=== PATIENT | female | born 1980 | race Two or more races ===

== ENCOUNTER → 2016-10-28 | Outpatient (CLI) | payer SELFPAY ==
[~2016-10-28] MED LIST: NO MEDICATIONS; PEPCID40 MG PO; PREDNISONE50 MG PO
--- NOTE | ~2016-10-28 | CR63 ---
[facility] A Service of [facility] & [facility] RADIOLOGY TEXT RESULTS PATIENT: SONA CHUN LOCATION: [facility] : 76 UNIT #: [id number] AGE: [address]: Alo Andrade MD SEX: F ORDER DR: [id number] [facility] [address] [place], [place] [address] [id number] O MR#: [id number] Acc #: [id number] NAME: SONA CHUN : 1980 SEX: F STUDY DATE/TIME: 10/28/2016 17:28 UNIT: [facility] ROOM: STUDY DESCRIPTION: CR Chest 2 View Attending Physician: Alo Andrade M.D. Referring Physician: Alo Andrade M.D. Ordering Physician: Alo Andrade M.D. Primary Care Physician: No Primary Care Physician MEDICAL IMAGING REPORT This report is preliminary unless electronic signature is present EXAM 2 view chest. DATE OF EXAM 10/28/2016 INDICATIONS Routine school physical. FINDINGS PA and lateral views of the chest without comparison. Heart and mediastinal contours are normal. Lungs are clear. There is mild dextroscoliosis with apex at the T9-10 level. IMPRESSION No acute findings. Negative chest radiograph. Dictated by... Giovanni Bearden M.D. THIS IS AN ELECTRONICALLY VERIFIED REPORT Giovanni Bearden M.D. at 10/29/2016 7:53 AM MONICA/nina TD: 10/28/2016 22:03 JOB #: [id number] MEDICAL IMAGING REPORT Page 1 of 1 COPY
== END | disposition home or self-care (01) ==
LOC: CRAD 17:12
DX: Z02.0 Encounter for examination for admission to educational institution (principal)
CPT/HCPCS: 71020